=== PATIENT | female | born 1990 | race Two or more races ===

== ENCOUNTER 2017-11-29 11:25 | Emergency (ER) | payer BC, MEDICAID ==
[~2017-11-29] VITALS: Ht 165.1 cm; Wt 120.0 kg
[2017-11-29 14:39] LABS: BASOPHILS % 1.3 % (0.0-2.0); EOSINOPHILS % 2.3 % (0.0-5.0); HEMATOCRIT. 31.5 % (36.0-48.0); HEMOGLOBIN. 9.9 g/dL (12.0-16.0); LYMPHOCYTES % 40.6 % (20.0-50.0); MEAN CORPUSCULAR HEMOGLOBIN 26.1 pg (28.0-32.0); MEAN CORPUSCULAR VOLUME 82.9 fL (81.0-99.0); MEAN PLATELET VOLUME 9.3 fl (7.4-10.4); NEUTROPHILS % 46.8 % (40.0-76.0); PLATELET 401 x1000/uL (130-400); RED CELL DISTRIBUTION WIDTH 16.2 % (11.6-14.6)
[2017-11-29] MEDS ORDERED: SODIUM CHLORIDE 0.9% 1,000 ML IV ONE (14:45)
[2017-11-29] MEDS ORDERED: KETOROLAC 15MG/ML VIAL IV ONE (14:45)
[2017-11-29 14:46] LABS: INR 1.1
[2017-11-29 14:51] LABS: KETONES URINE TRACE (NEGATIVE); LEUKOCYTE ESTERASE URINE 1+ (NEGATIVE); NITRITE URINE NEGATIVE (NEGATIVE); OCCULT BLOOD URINE 3+ (NEGATIVE); PROTEIN URINE 1+ (NEGATIVE); SPECIFIC GRAVITY URINE 1.023 (1.005-1.030); UROBILINOGEN URINE 0.2 E.U./dL (0.2-1.0)
[2017-11-29 14:52] LABS: CLARITY URINE CLOUDY (CLEAR); COLOR URINE BLOODY (YELLOW)
[2017-11-29 15:06] LABS: CHLORIDE 104 mEq/L (98-107)
[2017-11-29 17:35] VITALS: BP 122/68
[2017-11-29] MEDS ORDERED: METRONIDAZOLE 500MG TABLET PO ONE (18:15)
[2017-11-29] MEDS ORDERED: ONDANSETRON 4MG ODT PO ONE (18:30)
== END 2017-11-29 19:23 | disposition home or self-care (01) ==
LOC: ER 11:25
DX: A59.9 Trichomoniasis, unspecified (principal); D64.9 Anemia, unspecified; N93.8 Other specified abnormal uterine and vaginal bleeding; K76.0 Fatty (change of) liver, not elsewhere classified; N85.8 Other specified noninflammatory disorders of uterus; E66.9 Obesity, unspecified; Z68.41 Body mass index [BMI] 40.0-44.9, adult
CPT/HCPCS: 36415; 76700; 76830; 76856; 80053; 81001; 81025; 83690; 85025; 85610; 96374; 99285; J1885; J7030; Q0162